=== PATIENT | male | born 1970 | race Caucasian/White ===

== ENCOUNTER → 2016-12-22 | Outpatient (CLI) | payer MEDICAID ==
--- NOTE | 2016-12-22 17:07 | RADIOLOGY REPORT (SQ) ---
EXAM DESCRIPTION: CHEST PA/LATERAL COMPLETED DATE/TIME: 12/22/2016 4:46 pm REASON FOR STUDY: PLEURODYNIA COMPARISON: None. EXAM PARAMETERS: NUMBER OF VIEWS: two views TECHNIQUE: Digital Frontal and Lateral radiographic views of the chest acquired. RADIATION DOSE: NA LIMITATIONS: none FINDINGS: LUNGS AND PLEURA: No opacities, masses or pneumothorax. No pleural effusion. MEDIASTINUM AND HILAR STRUCTURES: No masses or contour abnormalities. HEART AND VASCULAR STRUCTURES: Heart normal size. No evidence for failure. BONES: No acute findings. HARDWARE: None in the chest. OTHER: No other significant finding. IMPRESSION: NO SIGNIFICANT RADIOGRAPHIC FINDING IN THE CHEST. TECHNICAL DOCUMENTATION: JOB ID: [id number] [employer]- All Rights Reserved
== END ==
LOC: OD 16:08
PROVIDERS: ATTEND Family Medicine
DX: R07.81 Pleurodynia (principal)
CPT/HCPCS: 71020

== ENCOUNTER 2016-12-30 17:04 | Emergency (ER) | payer MEDICAID ==
[2016-12-30] MEDS ORDERED: ETOMIDATE INJ/PF 20 MG/10 ML SDV IV ONE (17:12)
[2016-12-30] MEDS ORDERED: PROPOFOL INJ 200 MG/20 ML VIAL IV ONE (17:12)
[2016-12-30] MEDS ORDERED: LORAZEPAM INJ 2 MG/1 ML VIAL IV ONE (17:12)
[2016-12-30] MEDS ORDERED: ROCURONIUM BROMIDE INJ 50 MG/5 ML VIAL IV ONE ×2 (17:13→19:13)
[2016-12-30] MEDS ORDERED: NORMAL SALINE 500 ML IV ONE (17:15)
[2016-12-30] MEDS ORDERED: PROPOFOL 100 ML IV ONE ×4 (17:21→23:41)
[2016-12-30 17:38] LABS: HEMOGLOBIN 14.6 g/dL (13.5-17.0); HGB HCT DIFFERENCE -0.2; MEAN CORPUSCULAR HEMOGLOBIN 31.8 pg (27.0-33.4); MEAN CORPUSCULAR HGB CONC 33.3 g/dL (32.0-36.0); MEAN CORPUSCULAR VOLUME 96 fl (80-97); RED BLOOD COUNT 4.61 10^6/uL (4.35-5.55); WHITE BLOOD COUNT 20.5 10^3/uL (4.0-10.5)
[2016-12-30 17:53] LABS: BASOPHILS % (MANUAL) 2 % (0-2); EOSINOPHILS % (MANUAL) 2 % (0-6); LYMPHOCYTES % (MANUAL) 25 % (13-45); TOTAL CELLS COUNTED 100
[2016-12-30 17:55] LABS: ALANINE AMINOTRANSFERASE 31 U/L (21-72); ALBUMIN 5.1 g/dL (3.5-5.0); ALKALINE PHOSPHATASE 105 U/L (38-126); ASPARTATE AMINO TRANSFERASE 33 U/L (17-59); BILIRUBIN,DIRECT 0.4 mg/dL (0.0-0.4); BILIRUBIN,TOTAL 0.4 mg/dL (0.2-1.3); BLOOD UREA NITROGEN 14 mg/dL (7-20); CALCIUM 9.1 mg/dL (8.4-10.2); CREATINE KINASE 578 U/L (55-170); CREATININE RESULT 1.37 mg/dL (0.52-1.25); GLUCOSE 180 mg/dL (75-110); TOTAL PROTEIN 8.3 g/dL (6.3-8.2)
[2016-12-30 17:56] LABS: PLATELET CLUMPS PRESENT; POIKILOCYTOSIS SLIGHT; POLYCHROMASIA SLIGHT
[2016-12-30 17:57] LABS: BURR CELLS SLIGHT
--- NOTE | 2016-12-30 17:57 | ER Document Report ---
ED General - General Stated Complaint: UNRESPONSIVE Time Seen by Provider: 12/30/16 17:11 Mode of Arrival: Stretcher Information source: Emergency Med Personnel Cannot obtain history due to: Altered mental status TRAVEL OUTSIDE OF THE [place] IN LAST 30 DAYS: No - HPI Notes: This is a 46-year-old male with history of diabetes, no apparent seizures who presents with altered mental status. He cannot give history as he is obtunded/ combative. Apparently a bystander called EMS for a sick male. He was awake when EMS got there and was very diaphoretic have been working out in the garage and stated he had some blurred vision and felt dizzy. Shortly after he had a generalized tonic-clonic seizure with spontaneous resolution though was given Versed 5 mg intramuscularly around the time of the event. After he was very confused and combative. There was no clear history of trauma. Events otherwise are unclear. He notably was not hypoglycemic. He was tachycardic had a rectal temperature of 100.3. - Related Data Allergies/Adverse Reactions: codeine [Codeine] Allergy (Verified 12/30/16 20:14) Home Medications: Current Home Medications Lisinopril [Lisinopril] 10 mg PO DAILY 12/30/16 [History] Past Medical History - Social History Smoking Status: Unknown if Ever Smoked Family History: Reviewed & Not Pertinent - Past Medical History Cardiac Medical History: Reports: Hx Hypertension - unmedicated Musculoskeltal Medical History: Reports Hx Gout Past Surgical History: Reports: Hx Orthopedic Surgery - R foot, Hx Tonsillectomy Review of Systems - Review of Systems -: Yes ROS unobtainable due to patient's medical condition Physical Exam - Vital signs Vitals: Pulse Ox 93 12/30/16 17:04 Interpretation: Hypertensive - Notes Notes: GENERAL: VS as per nursing doc. diaphoretic, warm. Patient combative. HEAD: There is an abrasion over the right zygomatic region. EYES: Pupils are sluggish at 4 mm, no gaze preference sclera anicteric, no conjunctival injection or discharge. ENT: Nares patent, oropharynx clear without exudates, moist mucous membranes. Nasal trumpet in place NECK: No adenopathy, large neck LUNGS: Bibasilar Rales, coarse, normal spontaneous respirations HEART: Tachycardic without murmurs. ABDOMEN: Soft, nondistended EXTREMITIES: 2+ edema, some abrasions consistent with the combative state NEUROLOGICAL: Combative moves all extremities well with symmetrical strength. PSYCH: . SKIN: Warm, diaphoretic abrasions as noted. Course - Re-evaluation Re-evalutation: 12/30/16 19:55 I updated the family again regarding current findings. We will start the admission process, ABG and repeat BMP, magnesium are pending. Family have been updated otherwise including CT and chest x-ray results. 12/30/16 21:53 I contacted [facility] regarding family's preference of hospital transfer. The patient remains intubated. Reason for transfer is that there are no ICU beds available as verified by our hospitalist as well as our ED charge nurse/ warehouse technician. We as well do not have neurology supervisor publications production which I have verified as well with them. 12/30/16 22:[address] Maharaj through the transfer center at [facility] as this was family's initial preference. They do not have any nighttime neurology cover and cannot except for that reason which seems reasonable. We will contact the family's second choice. 12/30/16 22:10 I spoke with Preeti at [facility]. She took the current information and vital signs and will have someone contact us back. Currently they have no ICU beds so we will be placed on a wait list until they decide acceptance. 12/30/16 22:[address] Bell at [facility]. They have no current ICU bed available but he will be placed on the wait list. They suggested extubating the patient in the meanwhile if he seems to be improving. At this point I do not feel comfortable with that as I do not feel he is awake enough but we will monitor sedation and see how he responds for extubation duration. 12/30/16 22:59 I contacted [facility]. They as well have no neurology coverage. - Vital Signs Vital signs: Temp Pulse Resp BP Pulse Ox 98.6 F 14 126/93 H 100 12/30/16 22:28 12/30/16 22:28 12/30/16 22:28 12/30/16 22:28 - Laboratory Result Diagrams: 12/30/16 17:15 12/30/16 20:06 Laboratory results interpreted by me: 12/30/16 12/30/16 12/30/16 17:10 17:15 17:15 WBC 20.5 H Metamyelocytes % 1 H Abs Neuts (Manual) 13.3 H Abs Lymphs (Manual) 5.5 H Abs Basophils (Manual) 0.4 H Carbonic Acid ABG pH ABG pCO2 ABG pO2 ABG Total CO2 ABG O2 Saturation Sodium 145.1 H Potassium 5.1 H Chloride Carbon Dioxide 11 L Anion Gap 27 H Creatinine 1.37 H Est GFR (Non-Af Amer) 56 L Glucose 180 H Lactic Acid Calcium Magnesium Creatine Kinase 578 H Total Protein 8.3 H Albumin 5.1 H Urine Protein 100 H Urine Blood LARGE H 12/30/16 12/30/16 12/30/16 17:15 17:15 20:06 WBC Metamyelocytes % Abs Neuts (Manual) Abs Lymphs (Manual) Abs Basophils (Manual) Carbonic Acid ABG pH ABG pCO2 ABG pO2 ABG Total CO2 ABG O2 Saturation Sodium Potassium Chloride 110 H Carbon Dioxide 19 L Anion Gap Creatinine Est GFR (Non-Af Amer) Glucose 117 H Lactic Acid 11.5 H Calcium 8.2 L Magnesium 2.9 H Creatine Kinase Total Protein Albumin Urine Protein Urine Blood 12/30/16 20:06 WBC Metamyelocytes % Abs Neuts (Manual) Abs Lymphs (Manual) Abs Basophils (Manual) Carbonic Acid 1.45 H ABG pH 7.24 L ABG pCO2 48.1 H ABG pO2 174.8 H ABG Total CO2 21.5 L ABG O2 Saturation 98.9 H Sodium Potassium Chloride Carbon Dioxide Anion Gap Creatinine Est GFR (Non-Af Amer) Glucose Lactic Acid Calcium Magnesium Creatine Kinase Total Protein Albumin Urine Protein Urine Blood - Consults Dr. Juan Arguelles Time consulted: 20:11 - We will discuss again after repeat ABG/BMP back Dr. Juan Arguelles #1 Time consulted: 21:29 - He reports need for transfer as we have no ICU beds available. Procedures - Intubation Orotracheal Airway evaluation: Obese Medications: Etomidate, Other - Rocuronium 75mg Intubation method: Orotracheal Blade type: Marlene Blade size: 4 Equipment used: Glidescope ETT size: 8.0 ETT secured at: Teeth ETT secured at (cm): 24 Breath Sounds after Intubation: Equal End tidal CO2 confirmed: Yes - Confirmed Post Intubation Xray: Yes - Good ETT/OG tubes Intubation Complications: No complications Critical Care Note - Critical Care Note Total time excluding time spent on procedures (mins): 40 - Time spent on repetitive evaluations, multiple family discussions, hospitalist conversation and transfer/specialty discussion Discharge - Discharge Clinical Impression: Status epilepticus Condition: Serious Disposition: [facility] Referrals: JUAN MATA MD [Primary Care Provider] - Follow up as needed
[2016-12-30 18:02] LABS: CHLORIDE 107 mmol/L (98-107); POTASSIUM 5.1 mmol/L (3.6-5.0); SODIUM 145.1 mmol/L (137-145)
[2016-12-30 18:06] LABS: CREATINE KINASE MB 3.36 ng/mL (<4.55)
[2016-12-30 18:07] LABS: ANION GAP 27 (5-19); CARBON DIOXIDE 11 mmol/L (22-30); TROPONIN I < 0.012 ng/mL
--- NOTE | 2016-12-30 18:11 | RADIOLOGY REPORT (SQ) ---
EXAM DESCRIPTION: CT HEAD WITHOUT COMPLETED DATE/TIME: 12/30/2016 5:56 pm REASON FOR STUDY: AMS COMPARISON: 05/29/2016 TECHNIQUE: Axial images acquired through the brain without intravenous contrast. Images reviewed wi th bone, brain and subdural windows. Images stored on PACS. All CT scanners at this facility use dose modulation, iterative reconstruction, and/or weight based d osing when appropriate to reduce radiation dose to as low as reasonably achievable (ALARA). [facility]: Dose Right [facility]: CareDose [facility]: Dose Right [facility]: Teradose 4D [facility]: [employer] RADIATION DOSE: Up-to-date CT equipment and radiation dose reduction techniques were employed. CTDIv ol: 64.6 mGy. DLP: 1163 mGy-cm. mGy. LIMITATIONS: None. FINDINGS: VENTRICLES: Normal size and contour. CEREBRUM: No masses. No hemorrhage. No midline shift. Normal torres/white matter differentiation. N o evidence for acute infarction. CEREBELLUM: No masses. No hemorrhage. No alteration of density. No evidence for acute infarction. EXTRAAXIAL SPACES: No fluid collections. No masses. ORBITS AND GLOBE: No intra- or extraconal masses. Normal contour of globe without masses. CALVARIUM: No fracture. PARANASAL SINUSES: No fluid or mucosal thickening. SOFT TISSUES: No mass or hematoma. OTHER: Partial visualization endotracheal tube. IMPRESSION: NO ACUTE INTRACRANIAL PROCESS. NO SIGNIFICANT CHANGE FROM PRIOR STUDY. TECHNICAL DOCUMENTATION: JOB ID: [id number] Quality ID # [id number]: Final reports with documentation of one or more dose reduction techniques (e.g., Au tomated exposure control, adjustment of the mA and/or kV according to patient size, use of iterative reconstruction technique) 2010 [employer]- All Rights Reserved
--- NOTE | 2016-12-30 18:15 | RADIOLOGY REPORT (SQ) ---
EXAM DESCRIPTION: CHEST SINGLE VIEW COMPLETED DATE/TIME: 12/30/2016 6:04 pm REASON FOR STUDY: ETT placement COMPARISON: 12/22/2016 NUMBER OF VIEWS: One view. TECHNIQUE: Single frontal radiographic view of the chest acquired. LIMITATIONS: None. FINDINGS: LUNGS AND PLEURA: No opacities, masses or pneumothorax. No pleural effusion. MEDIASTINUM AND HILAR STRUCTURES: No masses or contour abnormality. HEART AND VASCULATURE: Cardiac enlargement. Vascular congestion. BONES: No acute findings. HARDWARE: Endotracheal tube terminates approximately 3.7 cm above the olaf. Enteric tube appears t o be located within the stomach. OTHER: No other significant finding. IMPRESSION: CARDIAC ENLARGEMENT. VASCULAR CONGESTION. SATISFACTORY PLACEMENT ENDOTRACHEAL TUBE AND ENTERIC TUBE. TECHNICAL DOCUMENTATION: JOB ID: [id number] [employer]- All Rights Reserved
[2016-12-30 18:48] LABS: APPEARANCE,URINE CLEAR; BILIRUBIN,URINE NEGATIVE (NEGATIVE); GLUCOSE, URINE NEGATIVE (NEGATIVE); KETONES,URINE NEGATIVE (NEGATIVE); LEUKOCYTE ESTERASE,URINE NEGATIVE (NEGATIVE); NITRITE,URINE NEGATIVE (NEGATIVE); PROTEIN,URINE 100 mg/dL (NEGATIVE); URINE SPECIFIC GRAVITY 1.011; UROBILINOGEN,URINE NEGATIVE mg/dL (<2.0)
[2016-12-30] MEDS ORDERED: LEVETIRACETAM 1500 MG/NACL-ISO 100 ML IV ONE (19:23)
[2016-12-30 20:32] LABS: ARTERIAL BLOOD BASE EXCESS -7.5 mmol/L; ARTERIAL BLOOD O2 SATURATION 98.9 % (94-98)
[2016-12-30 20:49] LABS: ANION GAP 10 (5-19); BLOOD UREA NITROGEN 16 mg/dL (7-20); CALCIUM 8.2 mg/dL (8.4-10.2); CARBON DIOXIDE 19 mmol/L (22-30); CHLORIDE 110 mmol/L (98-107); CREATININE RESULT 1.09 mg/dL (0.52-1.25); GLUCOSE 117 mg/dL (75-110); POTASSIUM 4.9 mmol/L (3.6-5.0); SODIUM 139.3 mmol/L (137-145)
[2016-12-30] MEDS ORDERED: LEVETIRACETAM 500 MG/NACL-ISO 100 ML IV ONE (21:32)
[2016-12-30] MEDS ORDERED: LEVETIRACETAM 1000 MG/NACL-ISO 100 ML IV ONE (21:34)
[2016-12-31] MEDS ORDERED: PROPOFOL 100 ML IV ONE (00:53)
[2016-12-31 01:44] VITALS: BP 131/88
--- NOTE | 2017-01-01 13:06 | EKG REPORT ---
SEVERITY:- ABNORMAL ECG - SINUS TACHYCARDIA INCOMPLETE LEFT BUNDLE BRANCH BLOCK : Confirmed by: Monica Henry MD 01-Jan-2017 13:05:40
== END 2016-12-31 01:00 | disposition short-term general hospital (02) ==
LOC: ER 17:04
PROC: 0BH17EZ Insertion of Endotracheal Airway into Trachea, Via Natural or Artificial Opening (ICD-10-PCS; principal; 2016-12-30)
DX: G40.901 Epilepsy, unspecified, not intractable, with status epilepticus (principal); R00.0 Tachycardia, unspecified; Z88.6 Allergy status to analgesic agent
CPT/HCPCS: 31500; 93005; 99291; 96361; 51702; 96375; 96365; 36415; 82553; 82803; 82550; 83735; 85025; 80048; 80053; 81001; 84484; 83605; 71010; 70450; 93010; 36600; J3490; J2060; J7040; J1953 ×2

== ENCOUNTER 2017-01-22 05:59 | Emergency (ER) | payer MEDICAID ==
[2017-01-22] MEDS ORDERED: NORMAL SALINE 1000 ML 1,000 ML IV ONE ×2 (06:47→08:56)
--- NOTE | 2017-01-22 07:24 | ER Document Report ---
ED General - General Chief Complaint: Fall Injury Stated Complaint: FALL/WEAKNESS Time Seen by Provider: 01/22/17 06:08 Mode of Arrival: Ambulatory Information source: Patient Notes: 46-year-old male who had new onset seizures approximately 3 weeks ago after which he was transported to [facility] where he was noted to be in rhabdo requiring dialysis for 5 days and was on the ventilator for 9 presents with complaints of generalized weakness and feeling cold. Patient notes last night he fell striking his back. Patient denies any weakness numbness or loss of bowel or bladder function of his lower extremities. He does note tenderness in the thoracic lumbar region. TRAVEL OUTSIDE OF THE [place] IN LAST 30 DAYS: No - HPI Onset: Yesterday Onset/Duration: Sudden Quality of pain: Achy Severity: Mild Pain Level: 1 Associated symptoms: Body/muscle aches, Weakness Exacerbated by: Denies Relieved by: Denies Similar symptoms previously: No Recently seen / treated by doctor: Yes - Related Data Allergies/Adverse Reactions: codeine [Codeine] Allergy (Verified 12/30/16 20:14) Past Medical History - Social History Smoking Status: Never Smoker Cigarette use (# per day): No Chew tobacco use (# tins/day): No Smoking Education Provided: No Frequency of alcohol use: None Drug Abuse: None Family History: Reviewed & Not Pertinent Patient has suicidal ideation: No Patient has homicidal ideation: No - Past Medical History Cardiac Medical History: Reports: Hx Hypertension - unmedicated Neurological Medical History: Reports: Hx Seizures Renal/ Medical History: Denies: Hx Peritoneal Dialysis Musculoskeltal Medical History: Reports Hx Gout Past Surgical History: Reports: Hx Orthopedic Surgery - R foot, Hx Tonsillectomy - Immunizations Hx Diphtheria, Pertussis, Tetanus Vaccination: Yes Review of Systems - Review of Systems Notes: REVIEW OF SYSTEMS: CONSTITUTIONAL : Denies fever, chills, or sweats. Denies recent illness. EENT: Denies eye, ear, throat, or mouth pain or symptoms. Denies nasal or sinus congestion or discharge. Denies throat, tongue, or mouth swelling or difficulty swallowing. CARDIOVASCULAR: Denies chest pain. Denies palpitations or racing or irregular heart beat. Denies ankle edema. RESPIRATORY: Denies cough, cold, or chest congestion. Denies shortness of breath, difficulty breathing, or wheezing. GASTROINTESTINAL: Denies abdominal pain or distention. Denies nausea, vomiting , or diarrhea. Denies blood in vomitus, stools, or per rectum. Denies black, tarry stools. Denies constipation. GENITOURINARY: Denies difficulty urinating, painful urination, burning, frequency, blood in urine, or discharge. MUSCULOSKELETAL: generalized body ache , low back pain SKIN: Denies rash, lesions or sores. HEMATOLOGIC : Denies easy bruising or bleeding. LYMPHATIC: Denies swollen, enlarged glands. NEUROLOGICAL: generalized weakness PSYCHIATRIC: Denies anxiety or stress. Denies depression, suicidal ideation, or homicidal ideation. ALL OTHER SYSTEMS REVIEWED AND NEGATIVE. Dictation was performed using [employer] voice recognition software PHYSICAL EXAMINATION: GENERAL: Well-appearing, well-nourished and in no acute distress. HEAD: Atraumatic, normocephalic. EYES: Pupils equal round and reactive to light, extraocular movements intact, sclera anicteric, conjunctiva are normal. ENT: Nares patent, oropharynx clear without exudates. Moist mucous membranes. NECK: Normal range of motion, supple without lymphadenopathy LUNGS: Breath sounds clear to auscultation bilaterally and equal. No wheezes rales or rhonchi. HEART: Regular rate and rhythm without murmurs ABDOMEN: Soft, nontender, nondistended abdomen. No guarding, no rebound. No masses appreciated. Musculoskeletal: tenderness of the T11-L4 region NEUROLOGICAL: Cranial nerves grossly intact. Normal speech, normal gait. Normal sensory, motor exams PSYCH: Normal mood, normal affect. SKIN: echymosis pf te abd from injections, echymosis of the left upper extremity from iv placement Physical Exam - Vital signs Vitals: Temp Pulse Resp BP Pulse Ox 97.5 F 104 H 20 123/77 99 01/22/17 06:00 01/22/17 06:00 01/22/17 06:00 01/22/17 06:00 01/22/17 06:00 Course - Re-evaluation Re-evalutation: 01/22/17 07:24 01/22/17 10:45 Family notes creatinine was higher than 1.8 on discharge, I will give IV fluids and will discharge home with pain control imaging noted no significant abnormality there is no sign of muscle breakdown at this time. Patient otherwise looks well is in no distress After performing a Medical Screening Examination, I estimate there is LOW risk for EXPANDING OR RUPTURED ABDOMINAL AORTIC ANEURYSM, CAUDA EQUINA SYNDROME, EPIDURAL MASS LESION, or HERNIATED DISK CAUSING SEVERE SPINAL STENOSIS, thus I consider the discharge disposition reasonable. I have reevaluated this patient multiple times and no significant life threatening changes are noted. The patient and I have discussed the diagnosis and risks, and we agree with discharging home and close follow-up. We also discussed returning to the Emergency Department immediately if new or worsening symptoms occur with the understanding that symptoms and presentations can change. We have discussed the symptoms which are most concerning (e.g., saddle anesthesia, urinary or bowel incontinence or retention, changing or worsening pain) that necessitate immediate return. - Vital Signs Vital signs: Temp Pulse Resp BP Pulse Ox 97.5 F 104 H 20 123/77 99 01/22/17 06:00 01/22/17 06:00 01/22/17 06:00 01/22/17 06:00 01/22/17 06:00 - Laboratory Result Diagrams: 01/22/17 09:23 01/22/17 08:22 Laboratory results interpreted by me: 01/22/17 01/22/17 08:22 09:23 RBC 3.46 L Hgb 11.0 L Hct 31.5 L Eosinophils % 6.4 H Chloride 109 H Carbon Dioxide 16 L BUN 21 H Creatinine 1.82 H Est GFR ( Amer) 49 L Est GFR (Non-Af Amer) 40 L Glucose 121 H Direct Bilirubin 0.5 H Alkaline Phosphatase 128 H Creatine Kinase 41 L Salicylates < 1.0 L - Diagnostic Test Radiology reviewed: Image reviewed, Reports reviewed - no acute abnormaltiy Discharge - Discharge Clinical Impression: Renal insufficiency Back pain Qualifiers: Back pain location: low back pain Chronicity: acute Back pain laterality: bilateral Sciatica presence: without sciatica Qualified Code(s): M54.5 - Low back pain Condition: Stable Disposition: HOME, SELF-CARE Instructions: Low Back Pain ([facility]) Prescriptions: Oxycodone HCl/Acetaminophen [Percocet 5-325 mg Tablet] 1 - 2 tab PO Q4H PRN #15 tablet PRN Reason: Referrals: JUAN MATA MD [Primary Care Provider] - Follow up tomorrow
[2017-01-22 07:36] LABS: APPEARANCE,URINE CLEAR; BILIRUBIN,URINE NEGATIVE (NEGATIVE); GLUCOSE, URINE NEGATIVE (NEGATIVE); KETONES,URINE NEGATIVE (NEGATIVE); LEUKOCYTE ESTERASE,URINE NEGATIVE (NEGATIVE); NITRITE,URINE NEGATIVE (NEGATIVE); PROTEIN,URINE NEGATIVE (NEGATIVE); URINE SPECIFIC GRAVITY 1.006; UROBILINOGEN,URINE NEGATIVE mg/dL (<2.0)
[2017-01-22] MEDS ORDERED: HYDROMORPHONE HCL INJ/PF 2 MG/ML AMPULE IV ONE (07:39)
--- NOTE | 2017-01-22 08:36 | RADIOLOGY REPORT (SQ) ---
EXAM DESCRIPTION: CT THORACIC SPINE WITHOUT COMPLETED DATE/TIME: 01/22/2017 8:19 am REASON FOR STUDY: fall COMPARISON: None. TECHNIQUE: Axial images acquired through the thoracic spine without intravenous contrast. Images re viewed with lung, soft tissue and bone windows. Reconstructed coronal and sagittal MPR images review ed. Images stored on PACS. All CT scanners at this facility use dose modulation, iterative reconstruction, and/or weight based d osing when appropriate to reduce radiation dose to as low as reasonably achievable (ALARA). [facility]: Dose Right [facility]: CareDose [facility]: Dose Right [facility]: Teradose 4D [facility]: [employer] RADIATION DOSE: Up-to-date CT equipment and radiation dose reduction techniques were employed. CTDIv ol: 44.1 mGy. DLP: 1484 mGy-cm. mGy. LIMITATIONS: None. FINDINGS: VISUALIZED LUNGS: No acute opacities. No pneumothorax. SOFT TISSUES: No soft tissue swelling. No masses. VERTEBRAL BODIES: No fractures. No dislocation. No acute findings. DISCS: No significant disc space narrowing. ALIGNMENT: Normal. TRANSVERSE PROCESSES, POSTERIOR ELEMENTS: No fractures. No dislocation. No acute findings. HARDWARE: None in the spine. VISUALIZED RIBS: No fractures. OTHER: No other significant finding. IMPRESSION: No significant posttraumatic changes are identified. Other findings as noted above TECHNICAL DOCUMENTATION: JOB ID: [id number] Quality ID # [id number]: Final reports with documentation of one or more dose reduction techniques (e.g., Au tomated exposure control, adjustment of the mA and/or kV according to patient size, use of iterative reconstruction technique) 2010 [employer]- All Rights Reserved
--- NOTE | 2017-01-22 08:39 | RADIOLOGY REPORT (SQ) ---
EXAM DESCRIPTION: CT LUMBAR SPINE WITHOUT COMPLETED DATE/TIME: 01/22/2017 8:19 am REASON FOR STUDY: fall COMPARISON: None. TECHNIQUE: Axial images acquired through the lumbar spine without intravenous contrast. Images revi ewed with lung, soft tissue and bone windows. Reconstructed coronal and sagittal MPR images reviewed . All images stored on PACS. All CT scanners at this facility use dose modulation, iterative reconstruction, and/or weight based d osing when appropriate to reduce radiation dose to as low as reasonably achievable (ALARA). [facility]: Dose Right [facility]: CareDose [facility]: Dose Right [facility]: Teradose 4D [facility]: [employer] RADIATION DOSE: mGy. LIMITATIONS: None. FINDINGS: SEGMENTATION: Normal. No transitional anatomy. ALIGNMENT: Normal. VERTEBRAL BODIES: No fractures. No dislocation. No acute findings. DISCS: No significant protrusions. Study limited by lack of intrathecal contrast. PEDICLES, TRANSVERSE PROCESSES: No fractures. No dislocation. No acute findings. FACETS, POSTERIOR ELEMENTS: No fractures. No dislocation. No spinal stenosis. HARDWARE: None in the spine. VISUALIZED RIBS: No fractures. SOFT TISSUES: No significant or acute finding in adjacent soft tissues. OTHER: No other significant finding. IMPRESSION: No significant posttraumatic changes are identified. Other findings as noted above TECHNICAL DOCUMENTATION: JOB ID: [id number] Quality ID # [id number]: Final reports with documentation of one or more dose reduction techniques (e.g., Au tomated exposure control, adjustment of the mA and/or kV according to patient size, use of iterative reconstruction technique) 2010 [employer] All Rights Reserved
[2017-01-22 08:50] LABS: ALANINE AMINOTRANSFERASE 68 U/L (21-72); ALBUMIN 4.2 g/dL (3.5-5.0); ALKALINE PHOSPHATASE 128 U/L (38-126); ANION GAP 14 (5-19); ASPARTATE AMINO TRANSFERASE 29 U/L (17-59); BILIRUBIN,DIRECT 0.5 mg/dL (0.0-0.4); BILIRUBIN,TOTAL 0.6 mg/dL (0.2-1.3); BLOOD UREA NITROGEN 21 mg/dL (7-20); CALCIUM 9.5 mg/dL (8.4-10.2); CARBON DIOXIDE 16 mmol/L (22-30); CHLORIDE 109 mmol/L (98-107); CREATINE KINASE 41 U/L (55-170); CREATININE RESULT 1.82 mg/dL (0.52-1.25); GLUCOSE 121 mg/dL (75-110); POTASSIUM 4.3 mmol/L (3.6-5.0); SODIUM 138.7 mmol/L (137-145); TOTAL PROTEIN 7.1 g/dL (6.3-8.2)
[2017-01-22 09:02] LABS: TROPONIN I < 0.012 ng/mL
[2017-01-22 09:33] LABS: ABSOLUTE BASOPHILS # (AUTO) 0.1 10^3/uL (0.0-0.2); ABSOLUTE EOSINOPHILS # (AUTO) 0.6 10^3/uL (0.0-0.6); ABSOLUTE LYMPHOCYTES (AUTO) 2.2 10^3/uL (0.5-4.7); ABSOLUTE MONOCYTES (AUTO) 0.5 10^3/uL (0.1-1.4); ABSOLUTE NEUT (AUTO) 5.9 10^3/uL (1.7-8.2); BASOPHILS % (AUTO) 1.4 % (0-2); EOSINOPHILS % (AUTO) 6.4 % (0-6); HEMATOCRIT 31.5 % (37.9-51.0); HGB HCT DIFFERENCE 1.5; MEAN CORPUSCULAR HEMOGLOBIN 31.8 pg (27.0-33.4); MEAN CORPUSCULAR HGB CONC 34.9 g/dL (32.0-36.0); MONOCYTES % (AUTO) 5.4 % (3-13); RED BLOOD COUNT 3.46 10^6/uL (4.35-5.55); SEGMENTED NEUTROPHILS % (AUTO) 62.8 % (42-78); WHITE BLOOD COUNT 9.3 10^3/uL (4.0-10.5)
[2017-01-22 09:43] LABS: MEAN CORPUSCULAR VOLUME 91 fl (80-97)
[2017-01-22 11:00] VITALS: BP 146/78
== END 2017-01-22 11:00 | disposition home or self-care (01) ==
LOC: ER 05:59
DX: M54.5 Low back pain (principal); W19.XXXA Unspecified fall, initial encounter; Y93.89 Activity, other specified; N28.9 Disorder of kidney and ureter, unspecified; R53.1 Weakness; I10 Essential (primary) hypertension; Z98.890 Other specified postprocedural states
CPT/HCPCS: 99285; 96361; 96374; 36415; 82553; 82550; 80307; 85025; 80053; 81001; 84484; 72128; 72131; J1170; J7030

== ENCOUNTER → 2017-02-08 | Outpatient (CLI) | payer MEDICAID ==
--- NOTE | 2017-02-08 16:46 | RADIOLOGY REPORT (SQ) ---
EXAM DESCRIPTION: MRI HEAD WITHOUT COMPLETED DATE/TIME: 02/08/2017 4:28 pm REASON FOR STUDY: ENCEPHALOPATHIES G93.40 ENCEPHALOPATHY, UNSPECIFIED COMPARISON: CT brain 12/30/2016, 05/29/2016 TECHNIQUE: Multiplanar imaging includes non-contrasted T1, T2, FLAIR, and diffusion with ADC map seq uences. Images stored on PACS. LIMITATIONS: None. FINDINGS: ANATOMY: No developmental anomalies. Normal vascular flow voids. Pituitary fossa normal. CSF SPACES: Normal in size and contour. No hemorrhage. CEREBRUM: In the posterior left parietal parasagittal cortex and subcortical white matter, a subacute infarct is present with minimal surface petechial hemorrhagic staining. This is seen is increased F LAIR/ T2 signal, altered diffusion signal, and gyriform increased T1 weighted signal on axial images 15-19, sagittal FLAIR image 14, and coronal T2 image 22. No other brain parenchymal signal abnormali ties. This finding was called to Dr. Alvarez 1620 hours, 02/08/2017. No MR findings worrisome for acute intracranial hemorrhage, acute ischemic change, mass effect, or mi dline shift. POSTERIOR FOSSA: No signal alteration. No hemorrhage. No edema, masses or mass effect. Internal yves tory canals, cerebello-pontine angles, mastoids normal. DIFFUSION IMAGING: Positive for subacute ischemic change in the left posterior parietal parasagittal cortex and subcortical white matter. ORBITS: No masses. Globes normal. PARANASAL SINUSES: No fluid levels. Mucosa normal. OTHER: No other significant finding. 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 No acute findings. EVIDENCE OF ACUTE STROKE: NO. TECHNICAL DOCUMENTATION: JOB ID: [id number]- All Rights Reserved
== END ==
LOC: RAD 15:13
PROVIDERS: ATTEND Family Medicine
DX: G93.40 Encephalopathy, unspecified (principal)
CPT/HCPCS: 70551

== ENCOUNTER 2017-02-19 11:09 | Emergency (ER) | payer MEDICAID ==
[2017-02-19] MEDS ORDERED: MECLIZINE HCL 25 MG TABLET PO ONE (11:26)
[2017-02-19] MEDS ORDERED: LEVETIRACETAM 1000 MG/NACL-ISO 1,000 MG/100 ML RTUPB IV ONE (11:27)
--- NOTE | 2017-02-19 11:30 | ER Document Report ---
ED Dizziness/Weakness - General Chief Complaint: General Weakness Stated Complaint: BLURRED VISION Time Seen by Provider: 02/19/17 11:14 Mode of Arrival: Stretcher Information source: Patient TRAVEL OUTSIDE OF THE [place] IN LAST 30 DAYS: No - HPI Patient complains to provider of: Dizziness, Vertigo Onset: This morning Onset/Duration: Gradual Quality of pain: Achy Severity: Mild Pain Level: 2 Associated symptoms: Headache, Nausea Notes: Patient is a 47-year-old male with a history of CVA which has led to seizures that started in December of this year, as well as hypertension, he presents to the emergency room today complaining of a mild headache associated with nausea and the sensation of the room spinning, he states his symptoms are similar to when he was diagnosed with stroke and seizures in December, he denies any head injury, no fever or chills, no vomiting or diarrhea, he does report that he ran out of his Keppra a few days ago - Related Data Allergies/Adverse Reactions: codeine [Codeine] Allergy (Verified 12/30/16 20:14) Home Medications: Current Home Medications Amlodipine Besylate 10 mg PO DAILY 02/19/17 [History] Aspirin [Adult Low Dose Aspirin EC] 81 mg PO DAILY 02/19/17 [History] Clonidine HCl 0.2 mg PO QHS 02/19/17 [History] Hydroxyzine Pamoate 50 mg PO QHS 02/19/17 [History] Isosorbide Mononitrate [Isosorbide Mononitrate ER] 30 mg PO DAILY 02/19/17 [ History] Levetiracetam 500 mg PO BID 02/19/17 [History] Metoprolol Succinate 25 mg PO DAILY 02/19/17 [History] Multivitamin [Multivitamins] 1 each PO DAILY 02/19/17 [History] Past Medical History - General Information source: Patient - Social History Smoking Status: Former Smoker Chew tobacco use (# tins/day): No Frequency of alcohol use: None Drug Abuse: None Family History: Reviewed & Not Pertinent - Past Medical History Cardiac Medical History: Reports: Hx Hypertension - unmedicated Neurological Medical History: Reports: Hx Seizures - because of stroke Renal/ Medical History: Denies: Hx Peritoneal Dialysis Musculoskeltal Medical History: Reports Hx Gout Past Surgical History: Reports: Hx Orthopedic Surgery - R foot, Hx Tonsillectomy - Immunizations Hx Diphtheria, Pertussis, Tetanus Vaccination: Yes Review of Systems - Review of Systems Constitutional: No symptoms reported EENT: No symptoms reported Cardiovascular: Dizziness Respiratory: No symptoms reported Gastrointestinal: Nausea Genitourinary: No symptoms reported Male Genitourinary: No symptoms reported Musculoskeletal: No symptoms reported Skin: No symptoms reported Hematologic/Lymphatic: No symptoms reported Neurological/Psychological: See HPI -: Yes All other systems reviewed and negative Physical Exam - Vital signs Vitals: Resp 16 02/19/17 11:14 Interpretation: Normal - General General appearance: Appears well, Alert - HEENT Head: Normocephalic, Atraumatic Eyes: Normal Conjunctiva: Normal Extraocular movements intact: Yes Eyelashes: Normal Pupils: PERRL - Respiratory Respiratory status: No respiratory distress Chest status: Nontender Breath sounds: Normal Chest palpation: Normal - Cardiovascular Rhythm: Regular Heart sounds: Normal auscultation Murmur: No - Abdominal Inspection: Normal Distension: No distension Bowel sounds: Normal Tenderness: Nontender Organomegaly: No organomegaly - Back Back: Normal, Nontender - Extremities General upper extremity: Normal inspection, Nontender, Normal color, Normal ROM , Normal temperature General lower extremity: Normal inspection, Nontender, Normal color, Normal ROM , Normal temperature, Normal weight bearing. No: Brian's sign - Neurological Neuro grossly intact: Yes Cognition: Normal Orientation: AAOx4 Rubén Coma Scale Eye Opening: Spontaneous [place] Coma Scale Verbal: Oriented [place] Coma Scale Motor: Obeys Commands Rubén Coma Scale Total: 15 Speech: Normal Motor strength normal: LUE, RUE, LLE, RLE Sensory: Normal - Psychological Associated symptoms: Normal affect, Normal mood - Skin Skin Temperature: Warm Skin Moisture: Dry Skin Color: Normal Course - Re-evaluation Re-evalutation: 02/19/17 13:13 Called to room for acute change in mental status, patient no longer knows where he is, who he is or who his at bedside this, I am concerned that he possibly had a seizure and is now postictal, due to patient's previous presentation of similar symptoms with CVA and MRI has been ordered 02/19/17 13:29 Called to bedside once again as patient appears to be having a seizure, I did confirm he was having a tonic-clonic seizure, had a brief period of hypoxia and a nonrebreather was immediately placed, and patient received 2 mg of IV Ativan, seizure lasted approximately 1 minute 02/19/17 15:47 Patient more awake and alert, reports feeling much better, symptoms are completely resolved, likely patient symptoms consistent with preseizure aura early this morning, had a seizure witnessed in the emergency room and since receiving IV Ativan and Keppra is feeling much better, patient likely had a seizure because he recently ran out of his Keppra - Vital Signs Vital signs: Temp Pulse Resp BP Pulse Ox 98.4 F 90 17 129/74 H 99 02/19/17 16:37 02/19/17 12:03 02/19/17 16:37 02/19/17 16:37 02/19/17 16:37 - Laboratory Result Diagrams: 02/19/17 11:35 02/19/17 11:35 Laboratory results interpreted by me: 02/19/17 02/19/17 11:35 11:35 WBC 11.3 H RBC 4.16 L Hgb 13.4 L Hct 37.6 L Carbon Dioxide 21 L Glucose 149 H Calcium 10.3 H Alkaline Phosphatase 172 H Creatine Kinase 33 L - Diagnostic Test Radiology reviewed: Image reviewed, Reports reviewed - EKG Interpretation by Me EKG shows normal: Sinus rhythm Rate: Normal Rhythm: NSR When compared to previous EKG there are: No significant change Critical Care Note - Critical Care Note Total time excluding time spent on procedures (mins): 30 Comments: Patient with acute change in mental status while in the emergency room, eventually leading to a seizure, requiring close observation, seizure precautions and IV medication Discharge - Discharge Clinical Impression: Seizure Condition: Stable Disposition: HOME, SELF-CARE Instructions: Seizure, Known Epileptic ([facility]) Additional Instructions: Follow up with your primary care provider in one to 2 days. Return to the emergency room immediately if symptoms worsen or any additional concerns. Take your medications as prescribed, try not to run out of medications again.
[2017-02-19 11:43] LABS: ABSOLUTE BASOPHILS # (AUTO) 0.2 10^3/uL (0.0-0.2); ABSOLUTE EOSINOPHILS # (AUTO) 0.3 10^3/uL (0.0-0.6); ABSOLUTE LYMPHOCYTES (AUTO) 2.6 10^3/uL (0.5-4.7); ABSOLUTE MONOCYTES (AUTO) 0.5 10^3/uL (0.1-1.4); ABSOLUTE NEUT (AUTO) 7.6 10^3/uL (1.7-8.2); BASOPHILS % (AUTO) 1.9 % (0-2); EOSINOPHILS % (AUTO) 2.6 % (0-6); HEMATOCRIT 37.6 % (37.9-51.0); HEMOGLOBIN 13.4 g/dL (13.5-17.0); HGB HCT DIFFERENCE 2.6; LYMPHOCYTES % (AUTO) 23.3 % (13-45); MEAN CORPUSCULAR HEMOGLOBIN 32.3 pg (27.0-33.4); MEAN CORPUSCULAR HGB CONC 35.7 g/dL (32.0-36.0); MEAN CORPUSCULAR VOLUME 90 fl (80-97); MONOCYTES % (AUTO) 4.6 % (3-13); RED BLOOD COUNT 4.16 10^6/uL (4.35-5.55); RED CELL DISTRIBUTION WIDTH 13.2 % (11.5-14.0); SEGMENTED NEUTROPHILS % (AUTO) 67.6 % (42-78); WHITE BLOOD COUNT 11.3 10^3/uL (4.0-10.5)
[2017-02-19 11:56] LABS: PROTHROMBIN TIME 11.8 SEC (11.4-15.4)
[2017-02-19] MEDS: NORMAL SALINE 1000 ML 1,000 ML IV PRN ×3 (11:56→15:42)
[2017-02-19 11:57] LABS: PARTIAL THROMBOPLASTIN TIME 25.2 SEC (23.5-35.8)
[2017-02-19 12:11] LABS: ALANINE AMINOTRANSFERASE 52 U/L (21-72); ALBUMIN 4.6 g/dL (3.5-5.0); ALKALINE PHOSPHATASE 172 U/L (38-126); ANION GAP 14 (5-19); ASPARTATE AMINO TRANSFERASE 21 U/L (17-59); BILIRUBIN,DIRECT 0.4 mg/dL (0.0-0.4); BILIRUBIN,TOTAL 0.4 mg/dL (0.2-1.3); BLOOD UREA NITROGEN 9 mg/dL (7-20); CALCIUM 10.3 mg/dL (8.4-10.2); CARBON DIOXIDE 21 mmol/L (22-30); CHLORIDE 105 mmol/L (98-107); CREATINE KINASE 33 U/L (55-170); CREATININE RESULT 0.89 mg/dL (0.52-1.25); GLUCOSE 149 mg/dL (75-110); POTASSIUM 4.3 mmol/L (3.6-5.0); SODIUM 139.7 mmol/L (137-145); TOTAL PROTEIN 7.5 g/dL (6.3-8.2)
--- NOTE | 2017-02-19 12:26 | RADIOLOGY REPORT (SQ) ---
EXAM DESCRIPTION: CT HEAD WITHOUT COMPLETED DATE/TIME: 02/19/2017 11:45 am REASON FOR STUDY: blurred vision, recent CVA COMPARISON: 12/30/2016 TECHNIQUE: Axial images acquired through the brain without intravenous contrast. Images reviewed wi th bone, brain and subdural windows. Images stored on PACS. All CT scanners at this facility use dose modulation, iterative reconstruction, and/or weight based d osing when appropriate to reduce radiation dose to as low as reasonably achievable (ALARA). [facility]: Dose Right [facility]: CareDose [facility]: Dose Right [facility]: Teradose 4D [facility]: [employer]lord RADIATION DOSE: Up-to-date CT equipment and radiation dose reduction techniques were employed. CTDIv ol: 64.6 mGy. DLP: 1163 mGy-cm. mGy. LIMITATIONS: None. FINDINGS: VENTRICLES: Normal size and contour. CEREBRUM: No masses. No hemorrhage. No midline shift. No evidence for acute infarction. Normal gra y/white matter differentiation. No areas of low density in the white matter. CEREBELLUM: No masses. No hemorrhage. No alteration of density. No evidence for acute infarction. EXTRAAXIAL SPACES: No fluid collections. No masses. ORBITS AND GLOBE: No intra- or extraconal masses. Normal contour of globe without masses. CALVARIUM: No fracture. PARANASAL SINUSES: No fluid or mucosal thickening. SOFT TISSUES: No mass or hematoma. OTHER: No other significant finding. IMPRESSION: NORMAL BRAIN CT WITHOUT CONTRAST. COMMENT: Quality ID # [id number]: Final reports with documentation of one or more dose reduction techniques (e.g., Automated exposure control, adjustment of the mA and/or kV according to patient size, use of iterative reconstruction technique) TECHNICAL DOCUMENTATION: JOB ID: [id number]- All Rights Reserved
--- NOTE | 2017-02-19 12:27 | RADIOLOGY REPORT (SQ) ---
EXAM DESCRIPTION: CHEST SINGLE VIEW COMPLETED DATE/TIME: 02/19/2017 12:00 pm REASON FOR STUDY: blurred vision, recent CVA COMPARISON: 12/30/2016 EXAM PARAMETERS: NUMBER OF VIEWS: One view. TECHNIQUE: Single frontal radiographic view of the chest acquired. RADIATION DOSE: NA LIMITATIONS: None. FINDINGS: LUNGS AND PLEURA: No opacities, masses or pneumothorax. No pleural effusion. MEDIASTINUM AND HILAR STRUCTURES: No masses. Contour normal. HEART AND VASCULAR STRUCTURES: Heart normal in size. Normal vasculature. BONES: No acute findings. HARDWARE: None in the chest. OTHER: No other significant finding. IMPRESSION: NO ACUTE RADIOGRAPHIC FINDING IN THE CHEST. TECHNICAL DOCUMENTATION: JOB ID: [id number]
[2017-02-19 12:29] LABS: CREATINE KINASE MB 0.49 ng/mL (<4.55)
[2017-02-19 12:30] LABS: TROPONIN I < 0.012 ng/mL
[2017-02-19] MEDS ORDERED: LORAZEPAM INJ 2 MG/1 ML VIAL ONE (13:30)
[2017-02-19] MEDS ORDERED: NORMAL SALINE 1000 ML 1,000 ML IV PRN ×2 (14:00→16:09)
[2017-02-19] MEDS ORDERED: LORAZEPAM INJ 2 MG/1 ML VIAL IV ONE (14:36)
[2017-02-19] MEDS ORDERED: NICOTINE 21 MG/24 HR PATCH.TD24 TD ONE (15:37)
--- NOTE | 2017-02-19 15:45 | RADIOLOGY REPORT (SQ) ---
EXAM DESCRIPTION: MRI HEAD COMBO COMPLETED DATE/TIME: 02/19/2017 3:32 pm REASON FOR STUDY: confusion, vision change COMPARISON: 02/08/2017 TECHNIQUE: Multiplanar imaging includes noncontrasted T1, T2, FLAIR, diffusion with ADC map and post gadolinium contrast T1 sequences. Images stored on PACS. CONTRAST TYPE AND DOSE: 20 mL Multihance. RENAL FUNCTION: GFR > 60. LIMITATIONS: Motion in the scanner. FINDINGS: No significant change. Subacute infarct left posterior parietal VARYING [employer]CEPTIONALITIES TEACHER distribution without significant mass effect or hemorrhage. IMPRESSION: Subacute infarct left VARYING EXCEPTIONALITIES TEACHER territory. No significant change. EVIDENCE OF ACUTE STROKE: NO. TECHNICAL DOCUMENTATION: JOB ID: [id number] [employer]- All Rights Reserved
--- NOTE | 2017-02-19 16:01 | EKG REPORT ---
SEVERITY:- ABNORMAL ECG - SINUS RHYTHM NONSPECIFIC T ABNORMALITIES, ANT-LAT LEADS : Confirmed by: Carlos Arzate MD 19-Feb-2017 16:00:33
[2017-02-19 16:24] LABS: URINE BARBITURATES SCREEN NEGATIVE; URINE METHADONE SCREEN NEGATIVE; URINE OPIATES LOW NEGATIVE; URINE PHENCYCLIDINE SCREEN NEGATIVE
[2017-02-19] MEDS ORDERED: LEVETIRACETAM 500 MG TABLET PO ONE (16:31)
[2017-02-19 17:05] VITALS: BP 129/74
== END 2017-02-19 16:43 | disposition home or self-care (01) ==
LOC: ER 11:09
DX: G40.909 Epilepsy, unspecified, not intractable, without status epilepticus (principal); R53.1 Weakness; I10 Essential (primary) hypertension; Z87.891 Personal history of nicotine dependence; Z88.6 Allergy status to analgesic agent
CPT/HCPCS: 93005; 99291; 96361; 96374; 96375; 36415; 80177; 82553; 80307 ×2; 82550; 85025; 85610; 85730; 80053; 84484; 70553; 71010; 70450; 93010; A9577; J2060; J3490 ×2; J7030; J1953

== ENCOUNTER → 2017-02-21 | Outpatient (CLI) | payer MEDICAID ==
[2017-02-21 14:05] LABS: HEMATOCRIT 36.6 % (37.9-51.0); HEMOGLOBIN 12.4 g/dL (13.5-17.0); HGB HCT DIFFERENCE 0.6; MEAN CORPUSCULAR HEMOGLOBIN 31.5 pg (27.0-33.4); MEAN CORPUSCULAR VOLUME 93 fl (80-97); RED BLOOD COUNT 3.95 10^6/uL (4.35-5.55); RED CELL DISTRIBUTION WIDTH 13.5 % (11.5-14.0)
[2017-02-21 14:11] LABS: APPEARANCE,URINE CLEAR; BILIRUBIN,URINE NEGATIVE (NEGATIVE); GLUCOSE, URINE NEGATIVE (NEGATIVE); KETONES,URINE NEGATIVE (NEGATIVE); LEUKOCYTE ESTERASE,URINE NEGATIVE (NEGATIVE); NITRITE,URINE NEGATIVE (NEGATIVE); PROTEIN,URINE NEGATIVE (NEGATIVE); URINE SPECIFIC GRAVITY 1.008; UROBILINOGEN,URINE NEGATIVE mg/dL (<2.0)
[2017-02-21 14:28] LABS: ANION GAP 15 (5-19); BLOOD UREA NITROGEN 9 mg/dL (7-20); CALCIUM 10.5 mg/dL (8.4-10.2); CARBON DIOXIDE 23 mmol/L (22-30); CHLORIDE 105 mmol/L (98-107); CREATININE RESULT 0.86 mg/dL (0.52-1.25); GLUCOSE 90 mg/dL (75-110); POTASSIUM 4.5 mmol/L (3.6-5.0)
== END ==
LOC: OD 12:51
PROVIDERS: ATTEND Physician Assistant Medical
DX: I10 Essential (primary) hypertension (principal); M62.82 Rhabdomyolysis; E87.2 Acidosis
CPT/HCPCS: 36415; 80048; 81001; 85027

== ENCOUNTER → 2017-02-28 | Outpatient (CLI) | payer MEDICAID ==
--- NOTE | 2017-02-28 11:11 | RADIOLOGY REPORT (SQ) ---
EXAM DESCRIPTION: ANKLE RIGHT COMPLETE COMPLETED DATE/TIME: 02/28/2017 10:23 am REASON FOR STUDY: PAIN IN RIGHT ANKLE AND JOINTS OF RIGHT FOOT M25.571 PAIN IN RIGHT ANKLE AND JOIN TS OF RIGHT FOOT COMPARISON: None. NUMBER OF VIEWS: Three views. TECHNIQUE: AP, lateral, and oblique radiographic images acquired of the right ankle. LIMITATIONS: None. FINDINGS: MINERALIZATION: Normal. BONES: No acute fracture or dislocation. No worrisome bone lesions. JOINTS: No effusions. SOFT TISSUES: No soft tissue swelling. No foreign body. OTHER: No other significant finding. IMPRESSION: NEGATIVE STUDY OF THE RIGHT ANKLE. NO RADIOGRAPHIC EVIDENCE OF ACUTE INJURY. TECHNICAL DOCUMENTATION: JOB ID: [id number] [employer]- All Rights Reserved
== END ==
LOC: OD 10:11
PROVIDERS: ATTEND Family Medicine
DX: M25.571 Pain in right ankle and joints of right foot (principal)

== ENCOUNTER → 2017-03-15 | Outpatient (CLI) | payer MEDICAID ==
[2017-03-15 11:37] LABS: ABSOLUTE BASOPHILS # (AUTO) 0.2 10^3/uL (0.0-0.2); ABSOLUTE EOSINOPHILS # (AUTO) 0.3 10^3/uL (0.0-0.6); ABSOLUTE MONOCYTES (AUTO) 0.6 10^3/uL (0.1-1.4); ABSOLUTE NEUT (AUTO) 9.3 10^3/uL (1.7-8.2); BASOPHILS % (AUTO) 1.2 % (0-2); HEMATOCRIT 39.1 % (37.9-51.0); HEMOGLOBIN 14.1 g/dL (13.5-17.0); HGB HCT DIFFERENCE 3.2; LYMPHOCYTES % (AUTO) 22.7 % (13-45); MEAN CORPUSCULAR HEMOGLOBIN 32.4 pg (27.0-33.4); MEAN CORPUSCULAR VOLUME 90 fl (80-97); MONOCYTES % (AUTO) 4.6 % (3-13); RED BLOOD COUNT 4.35 10^6/uL (4.35-5.55); RED CELL DISTRIBUTION WIDTH 13.8 % (11.5-14.0); SEGMENTED NEUTROPHILS % (AUTO) 69.5 % (42-78); WHITE BLOOD COUNT 13.4 10^3/uL (4.0-10.5)
[2017-03-15 11:40] LABS: APPEARANCE,URINE CLEAR; BILIRUBIN,URINE NEGATIVE (NEGATIVE); GLUCOSE, URINE NEGATIVE (NEGATIVE); KETONES,URINE NEGATIVE (NEGATIVE); LEUKOCYTE ESTERASE,URINE NEGATIVE (NEGATIVE); NITRITE,URINE NEGATIVE (NEGATIVE); PROTEIN,URINE 100 mg/dL (NEGATIVE); URINE SPECIFIC GRAVITY 1.012; UROBILINOGEN,URINE NEGATIVE mg/dL (<2.0)
[2017-03-15 12:03] LABS: ANION GAP 15 (5-19); BLOOD UREA NITROGEN 12 mg/dL (7-20); CALCIUM 10.3 mg/dL (8.4-10.2); CARBON DIOXIDE 22 mmol/L (22-30); CHLORIDE 105 mmol/L (98-107); CREATININE RESULT 0.95 mg/dL (0.52-1.25); GLUCOSE 105 mg/dL (75-110); POTASSIUM 4.5 mmol/L (3.6-5.0); SODIUM 142.1 mmol/L (137-145)
== END ==
LOC: OD 11:01
PROVIDERS: ATTEND Physician Assistant Medical
DX: I10 Essential (primary) hypertension (principal); E87.2 Acidosis; R56.9 Unspecified convulsions
CPT/HCPCS: 36415; 80048; 81001; 85025

== ENCOUNTER → 2017-09-30 | Outpatient (CLI) | payer MEDICAID ==
--- NOTE | 2017-09-30 20:22 | RADIOLOGY REPORT (SQ) ---
EXAM DESCRIPTION: MRI HEAD WITHOUT COMPLETED DATE/TIME: 09/30/2017 2:46 pm REASON FOR STUDY: CONFUSION STATE, HEARING LOSS F44.89 OTHER DISSOCIATIVE AND CONVERSION DISORDERS COMPARISON: 2017. TECHNIQUE: Multiplanar imaging includes non-contrasted T1, T2, FLAIR, and diffusion with ADC map seq uences. Thin section axial cuts through the IAC's additionally performed. Images stored on PACS. LIMITATIONS: None. FINDINGS: ANATOMY: No anomalies. Normal vascular flow voids. Pituitary fossa normal. CSF SPACES: Normal in size and contour. No hemorrhage. CEREBRUM: There is T2/FLAIR hyperintensity along the cortical and subcortical tissues of the medial l eft parietal and occipital lobe. This is in the location of previously noted subacute infarct. No h emorrhage or discrete mass or shift identified. No hydrocephalus. POSTERIOR FOSSA: No signal alteration. No hemorrhage. No edema, masses or mass effect. Internal yves tory canals, cerebello-pontine angles, mastoids normal. DIFFUSION IMAGING: Negative for acute or sub-acute infarction. ORBITS: No masses. Globes normal. PARANASAL SINUSES: No fluid levels. Mucosa normal. OTHER: No other significant finding. IMPRESSION: 1. Signal changes in the medial left parietal and occipital lobes which appear to corre spond to previous infarct in the MANAGER MEDICAL distribution. Otherwise unremarkable MRI of the brain without c ontrast. IAC's look generally normal. EVIDENCE OF ACUTE STROKE: NO. TECHNICAL DOCUMENTATION: JOB ID: [id number] [employer]- All Rights Reserved Reading location - IP/workstation name: [email or web address]
== END ==
LOC: RAD 13:52
PROVIDERS: ATTEND Family Medicine
DX: H91.93 Unspecified hearing loss, bilateral (principal); F44.89 Other dissociative and conversion disorders
CPT/HCPCS: 70551

== ENCOUNTER → 2018-08-20 | Outpatient (CLI) | payer MEDICAID ==
--- NOTE | 2018-08-20 12:56 | RADIOLOGY REPORT (SQ) ---
EXAM DESCRIPTION: CHEST PA/LATERAL COMPLETED DATE/TIME: 08/20/2018 12:43 pm REASON FOR STUDY: DYSPNEA,COUGH COMPARISON: 02/19/2017. EXAM PARAMETERS: NUMBER OF VIEWS: two views TECHNIQUE: Digital Frontal and Lateral radiographic views of the chest acquired. RADIATION DOSE: NA LIMITATIONS: none FINDINGS: LUNGS AND PLEURA: Diffuse interstitial prominence. Airspace disease in the right lower lo be with small right pleural effusion. MEDIASTINUM AND HILAR STRUCTURES: No masses or contour abnormalities. HEART AND VASCULAR STRUCTURES: Heart normal size. No evidence for failure. BONES: No acute findings. HARDWARE: None in the chest. OTHER: No other significant finding. IMPRESSION: RIGHT LOWER LOBE AIRSPACE DISEASE SUSPICIOUS FOR PNEUMONIA. SMALL RIGHT PLEURAL EFFUSIO N. INTERSTITIAL PROMINENCE MAY INDICATE MILD INTERSTITIAL EDEMA. TECHNICAL DOCUMENTATION: JOB ID: [id number] [employer]- All Rights Reserved Reading location - IP/workstation name: [email or web address]
== END ==
LOC: OD 12:29
PROVIDERS: ATTEND Physician Assistant
DX: J90 Pleural effusion, not elsewhere classified (principal); R06.00 Dyspnea, unspecified; R05 Cough
CPT/HCPCS: 71046